=== PATIENT | female | born 1980 | race Caucasian/White ===

== ENCOUNTER 2017-02-09 10:51 | Observation (INO) | payer OTHER ==
[~2017-02-09] VITALS: Ht 167.6 cm; Wt 93.1 kg
[2017-02-09 11:13] VITALS: BP 142/77
[2017-02-09 17:10] VITALS: BP 125/68
[2017-02-09 17:29] VITALS: BP 125/68
[2017-02-09 21:24] VITALS: BP 113/67
[2017-02-10 05:49] VITALS: BP 111/61
[2017-02-10 09:28] VITALS: BP 114/52
[2017-02-10 11:16] VITALS: BP 114/52
[2017-02-10 13:30] LABS: PHOSPHOROUS 2.5 mg/dL (2.5-4.9)
[2017-02-10 13:39] VITALS: BP 112/60
[2017-02-10] MEDS ORDERED: APAP/HYDROCODON1 T13 PO (14:58)
[2017-02-10] MEDS ORDERED: KEFLEX500 M1 PO (14:59)
== END 2017-02-10 17:20 | disposition home or self-care (01) | DRG 494 ==
LOC: DS 10:51 → OR 11:30 → DS 11:30 → MU 14:40 → DS 21:17 → MU 21:18
PROVIDERS: Neuromusculoskeletal Medicine, Sports Medicine; ADMIT Family Medicine
PROC: 0PSC04Z Reposition Right Humeral Head with Internal Fixation Device, Open Approach (ICD-10-PCS; principal; 2017-02-09 11:30)
DX: S42.291A Other displaced fracture of upper end of right humerus, initial encounter for closed fracture (principal); D64.9 Anemia, unspecified; W10.8XXA Fall (on) (from) other stairs and steps, initial encounter; Y92.29 Other specified public building as the place of occurrence of the external cause; Y99.0 Civilian activity done for income or pay
CPT/HCPCS: 76001; C1713; G0378; J0330; J0690; J1170; J1644; J2175; J2250; J2270; J2405; J2704; J2710; J3010; J3490; J7050; J7120